=== PATIENT | male | born 1955 | race Caucasian/White ===

== ENCOUNTER 2017-09-20 14:13 | Inpatient (IN) | payer OTHER, MEDICARE ==
[~2017-09-20] VITALS: Ht 182.9 cm; Wt 81.2 kg
[2017-09-20 15:23] LABS: BASOPHILS % (AUTO) 0 % (0-1); EOSINOPHILS % (AUTO) 0.4 % (0-6); HEMATOCRIT 32.4 % (42.0-52.0); HEMOGLOBIN 11.1 g/dl (14.0-17.9); LYMPHOCYTES # (AUTO) 0.3 X10'3 (1.1-4.8); LYMPHOCYTES % (AUTO) 3.1 % (21-51); MEAN CORPUSCULAR HEMOGLOBIN 29.9 PG (27.0-31.0); MEAN CORPUSCULAR HGB CONC 34.1 % (33.0-36.5); MEAN CORPUSCULAR VOLUME 87.6 FL (78-98); MEAN PLATELET VOLUME 9.3 FL (7.4-10.4); MONOCYTES # (AUTO) 0.2 X10'3 (0-0.9); MONOCYTES % (AUTO) 2.7 % (2-12); NEUTROPHILS # (AUTO) 8.6 X10'3 (1.8-7.7); NEUTROPHILS % (AUTO) 93.8 % (42-75); PLATELET COUNT 205 X10'3 (140-440); RED CELL DISTRIBUTION WIDTH 14.8 % (11.5-14.5); WHITE BLOOD COUNT 9.1 X10'3 (4.5-11.0)
[2017-09-20] MEDS ORDERED: cefepime 1GM/NS ADD-VANTAGE 100 ML IV ONE (15:25)
[2017-09-20] MEDS ORDERED: azithromycin/NS 500mg/250ml 250 ML IV ONE (15:25)
[2017-09-20] MEDS ORDERED: vancomycin/NS 1 GM ADD-VANTAGE 250 ML IV ONE (15:25)
[2017-09-20 15:32] LABS: PARTIAL THROMBOPLASTIN TIME 28 SECONDS (22-32); PROTHROMBIN TIME 10.2 SECONDS (9.0-12.0)
[2017-09-20 15:38] LABS: ALANINE AMINOTRANSFERASE 29 U/L (12-78); ALBUMIN 2.9 G/DL (3.4-5.0); ALBUMIN/GLOBULIN RATIO 0.7 (1.1-1.5); ALKALINE PHOSPHATASE 90 IU/L (46-116); ANION GAP 13 (8-16); ASPARTATE AMINO TRANSFERASE 34 U/L (10-37); BILIRUBIN,TOTAL 0.4 MG/DL (0.1-1.0); BLOOD UREA NITROGEN 39 MG/DL (7-18); BUN/CREATININE RATIO 17.7 (5.4-32.0); CALCIUM 8.9 MG/DL (8.5-10.1); CHLORIDE 97 MMOL/L (99-107); GLUCOSE 261 MG/DL (70-104); LIPASE < 50 U/L (73-393); MAGNESIUM 1.8 MG/DL (1.5-2.4); POTASSIUM 4.7 MMOL/L (3.5-5.1); SODIUM 132 MMOL/L (135-145); TOTAL CARBON DIOXIDE 22.5 MMOL/L (24-32); eGFR 31 ML/MIN
[2017-09-20] MEDS ORDERED: cefepime inj. 1 GM in dextrose 5%-water 50ml 50 ML IV ONE (15:53)
[2017-09-20] MEDS ORDERED: normal saline 1000ML IV soln IV ONE (16:05)
[2017-09-20] MEDS ORDERED: potassium Cl 40MEQ/NS 500ml 500 ML IV PRN ×2 (16:15)
[2017-09-20] MEDS ORDERED: magnesium 4gm in 100ml NS 100 ML IV PRN (16:15)
[2017-09-20] MEDS ORDERED: ipratropium/albuterol 3ml nebule NEB PRN (16:15)
[2017-09-20] MEDS ORDERED: potassium Cl 20 mEq SR tablet PO PRN (16:15)
[2017-09-20] MEDS ORDERED: ondansetron/PF 4mg/2ml inj IV PRN (16:15)
[2017-09-20] MEDS: K and/or MAG REPLACEMENT MC SCH (16:15)
[2017-09-20] MEDS ORDERED: magnesium hydroxide 30ml (MOM) UD suspension PO PRN (16:15)
[2017-09-20] MEDS ORDERED: magnesium Cl slow-release 64mg tablet PO PRN (16:15)
[2017-09-20] MEDS ORDERED: mag hydrox/Alum hydrox/simeth 30ml oral suspension PO PRN (16:15)
[2017-09-20] MEDS ORDERED: magnesium 2GM in 50ml NS 50 ML IV PRN (16:15)
[2017-09-20] MEDS ORDERED: acetaminophen 325mg tablet PO PRN ×2 (16:15)
[2017-09-20 16:31] LABS: ABG BASE EXCESS -5.1 mmol/L (-2.0-3.0); ABG HCO3 19.4 mmol/L (22.0-26.0); ABG OXYGEN SATURATION 92.7 % (95-98); ABG PCO2 (T) 33.8 mmHg (35.0-48.0); ABG PH (T) 7.377 (7.350-7.450); ABG PO2 (T) 68.7 mmHg (83-108); ALLEN'S TEST Positive; FCOHb 1.5 % (0.5-1.5); FMetHb 0.3 % (0.3-1.12); TOTAL HEMOGLOBIN 9.3 G/dl (14.0-18.0)
[2017-09-20] MEDS: normal saline 1000ml 1,000 ML IV SCH (17:11)
[2017-09-20] MEDS ORDERED: glucagon, human recombinant 1mg kit IM ONE (18:30)
[2017-09-20 18:31] LABS: BASOPHILS % (AUTO) 0.2 % (0-1); EOSINOPHILS % (AUTO) 0.1 % (0-6); HEMOGLOBIN 8.8 g/dl (14.0-17.9); LYMPHOCYTES # (AUTO) 0.5 X10'3 (1.1-4.8); LYMPHOCYTES % (AUTO) 5.7 % (21-51); MEAN CORPUSCULAR HEMOGLOBIN 29.6 PG (27.0-31.0); MEAN CORPUSCULAR HGB CONC 33.7 % (33.0-36.5); MEAN CORPUSCULAR VOLUME 87.8 FL (78-98); MEAN PLATELET VOLUME 8.7 FL (7.4-10.4); MONOCYTES # (AUTO) 0.4 X10'3 (0-0.9); MONOCYTES % (AUTO) 4.6 % (2-12); NEUTROPHILS # (AUTO) 8.1 X10'3 (1.8-7.7); NEUTROPHILS % (AUTO) 89.4 % (42-75); PLATELET COUNT 152 X10'3 (140-440); RED BLOOD COUNT 2.96 X10'6 (4.70-6.10); WHITE BLOOD COUNT 9.1 X10'3 (4.5-11.0)
[2017-09-20 18:59] LABS: TROPONIN I < 0.04 NG/ML (0.0-0.05)
[2017-09-20 20:21] LABS: ALANINE AMINOTRANSFERASE 24 U/L (12-78); ALBUMIN 2.3 G/DL (3.4-5.0); ALBUMIN/GLOBULIN RATIO 0.7 (1.1-1.5); ALKALINE PHOSPHATASE 65 IU/L (46-116); ANION GAP 8 (8-16); ASPARTATE AMINO TRANSFERASE 30 U/L (10-37); BILIRUBIN,TOTAL 0.4 MG/DL (0.1-1.0); BLOOD UREA NITROGEN 37 MG/DL (7-18); BUN/CREATININE RATIO 20.3 (5.4-32.0); CALCIUM 7.6 MG/DL (8.5-10.1); CHLORIDE 105 MMOL/L (99-107); CREATININE 1.82 MG/DL (0.60-1.10); GLUCOSE 221 MG/DL (70-104); POTASSIUM 4.5 MMOL/L (3.5-5.1); SODIUM 135 MMOL/L (135-145); TOTAL CARBON DIOXIDE 22.1 MMOL/L (24-32); TOTAL PROTEIN 5.5 G/DL (6.4-8.2); eGFR 38 ML/MIN
[2017-09-20 20:23] LABS: CLARITY,URINE CLEAR (Clear); COLOR,URINE YELLOW (Yellow); GLUCOSE, URINE 100 mg/dl (Neg); KETONES,URINE NEGATIVE (Neg); LEUKOCYTE ESTERASE ,URINE NEGATIVE (Neg); NITRITES, URINE NEGATIVE (Neg); OCCULT BLOOD,URINE LARGE (Neg); PROTEIN,URINE NEGATIVE (Neg); UROBILINOGEN,URINE 0.2 E.U/dL (0.2-1.0)
[2017-09-20] MEDS: ipratropium/albuterol 3ml nebule NEB SCH ×2 (20:34→23:57)
[2017-09-20 20:35] LABS: UA COLLECTION TYPE FOLEY CATH
[2017-09-20 20:36] LABS: BACTERIA,URINE FEW /HPF (Neg); MUCUS STRANDS FEW /LPF (Neg); RBC,URINE 0-2 /HPF (0-2); SQUAMOUS EPITHELIAL CELL,UR FEW /LPF (FEW); WBC,URINE NONE SEEN /HPF (0-4)
[2017-09-20] MEDS ORDERED: glucagon, human recombinant 1mg kit IV ONE (21:10)
[2017-09-20] MEDS ORDERED: dexamethasone 4mg tablet PO ONE (21:15)
[2017-09-20] MEDS ORDERED: NORepinephrine 8mg/ 250ml NS 250 ML IV SCH (23:15)
[2017-09-21] VITALS (16 sets, daily range): BP systolic 108–149; BP diastolic 60–76
[2017-09-21] MEDS ORDERED: normal saline 1000ml 1,000 ML IV SCH (01:35)
[2017-09-21] MEDS ORDERED: levoFLOXACIN-Levaquin 500mg/D5 100 ML IV ONE (01:35)
[2017-09-21] MEDS: normal saline 1000ml 1,000 ML IV SCH (02:15)
[2017-09-21] MEDS ORDERED: CLOP75TA15 PO (02:23)
[2017-09-21] MEDS ORDERED: CYCL-394 PO (02:23)
[2017-09-21] MEDS ORDERED: ATEN-169 PO (02:23)
[2017-09-21] MEDS ORDERED: MESA0.37 PO (02:23)
[2017-09-21] MEDS ORDERED: METF500T PO (02:23)
[2017-09-21] MEDS ORDERED: LOSA25TA96 PO (02:23)
[2017-09-21] MEDS ORDERED: ROSU40TA PO (02:23)
[2017-09-21] MEDS ORDERED: AMLO2.5T2 PO (02:23)
[2017-09-21] MEDS ORDERED: ISOS60TA4 PO (02:23)
[2017-09-21] MEDS ORDERED: HYDR25TA4 PO (02:23)
[2017-09-21] MEDS ORDERED: MORP60CP14 PO (02:23)
[2017-09-21] MEDS ORDERED: QUET-1 PO (02:23)
[2017-09-21] MEDS ORDERED: TERA5CAP4 PO (02:23)
[2017-09-21] MEDS ORDERED: FERR325T28 PO (02:23)
[2017-09-21] MEDS ORDERED: ALB0.5UD IH (02:23)
[2017-09-21] MEDS ORDERED: GABA-534 PO (02:23)
[2017-09-21] MEDS ORDERED: CHOL100024 PO (02:28)
[2017-09-21 03:31] LABS: BASOPHILS % (AUTO) 0 % (0-1); EOSINOPHILS # (AUTO) 0.1 X10'3 (0-0.9); EOSINOPHILS % (AUTO) 0.8 % (0-6); HEMATOCRIT 28.8 % (42.0-52.0); HEMOGLOBIN 9.8 g/dl (14.0-17.9); LYMPHOCYTES # (AUTO) 0.3 X10'3 (1.1-4.8); LYMPHOCYTES % (AUTO) 3.3 % (21-51); MEAN CORPUSCULAR HEMOGLOBIN 29.9 PG (27.0-31.0); MEAN PLATELET VOLUME 9.1 FL (7.4-10.4); MONOCYTES # (AUTO) 0.1 X10'3 (0-0.9); MONOCYTES % (AUTO) 0.6 % (2-12); NEUTROPHILS # (AUTO) 9.1 X10'3 (1.8-7.7); NEUTROPHILS % (AUTO) 95.3 % (42-75); PLATELET COUNT 164 X10'3 (140-440); RED BLOOD COUNT 3.27 X10'6 (4.70-6.10); RED CELL DISTRIBUTION WIDTH 15.2 % (11.5-14.5); WHITE BLOOD COUNT 9.5 X10'3 (4.5-11.0)
[2017-09-21 03:51] LABS: ALANINE AMINOTRANSFERASE 28 U/L (12-78); ALBUMIN 2.6 G/DL (3.4-5.0); ALBUMIN/GLOBULIN RATIO 0.7 (1.1-1.5); ALKALINE PHOSPHATASE 74 IU/L (46-116); ANION GAP 9 (8-16); ASPARTATE AMINO TRANSFERASE 35 U/L (10-37); BILIRUBIN,TOTAL 0.5 MG/DL (0.1-1.0); BLOOD UREA NITROGEN 27 MG/DL (7-18); BUN/CREATININE RATIO 20.8 (5.4-32.0); CALCIUM 8.2 MG/DL (8.5-10.1); CHLORIDE 106 MMOL/L (99-107); GLUCOSE 309 MG/DL (70-104); MAGNESIUM 1.8 MG/DL (1.5-2.4); POTASSIUM 3.8 MMOL/L (3.5-5.1); SODIUM 137 MMOL/L (135-145); TOTAL CARBON DIOXIDE 22.4 MMOL/L (24-32); TOTAL PROTEIN 6.4 G/DL (6.4-8.2); eGFR 56 ML/MIN
[2017-09-21] MEDS ORDERED: MESSAGE TO PHARMACY PO ONE (04:20)
[2017-09-21] MEDS ORDERED: dextrose ORAL solution 15 GM/59 ML bottle PO PRN ×2 (04:20)
[2017-09-21] MEDS ORDERED: glucagon, human recombinant 1mg kit SUBCUT PRN (04:20)
[2017-09-21] MEDS ORDERED: dextrose 50%-water 50ml dispensing syringe IV PRN ×2 (04:20)
[2017-09-21 05:29] LABS: FERRITIN 57 NG/ML (26-388)
[2017-09-21 06:13] LABS: % IRON SATURATION 7 % (11-46); IRON 20 UG/DL (53-167); TOTAL IRON BINDING CAPACITY 293 UG/DL (259-388)
[2017-09-21] MEDS: ipratropium/albuterol 3ml nebule NEB SCH ×5 (07:00→23:00)
[2017-09-21] MEDS ORDERED: cefepime 1GM/NS ADD-VANTAGE 100 ML IV SCH (08:00)
[2017-09-21] MEDS ORDERED: azithromycin/NS 500mg/250ml 250 ML IV SCH (08:00)
[2017-09-21] MEDS ORDERED: cefepime inj. 1 GM in dextrose 5%-water 50ml 50 ML IV SCH (08:00)
[2017-09-21] MEDS: gabapentin 400mg capsule PO SCH ×2 (08:00→19:39)
[2017-09-21] MEDS: K and/or MAG REPLACEMENT MC SCH (08:00)
[2017-09-21] MEDS ORDERED: pantoprazole 40 MG vial IV ONE (08:05)
[2017-09-21] MEDS: vitamin D (cholecalciferol) 1,000 unit tablet PO SCH (09:06)
[2017-09-21] MEDS: atorvastatin 20mg tablet PO SCH (09:06)
[2017-09-21] MEDS: ferrous sulfate 325mg tablet PO SCH (09:06)
[2017-09-21] MEDS: mesalamine 400 mg capsule.DR PO SCH ×4 (09:06→21:24)
[2017-09-21] MEDS: insulin Lispro (HumaLOG) vial - multi-dose SQ SCH ×2 (09:18→14:43)
[2017-09-21] MEDS: cefepime inj. 1 GM in dextrose 5%-water 100 ML IV SCH ×2 (09:19→16:50)
[2017-09-21] MEDS: vancomycin/NS 1 GM ADD-VANTAGE 250 ML IV SCH (14:40)
[2017-09-21] MEDS ORDERED: vancomycin inj 1,250 MG in normal saline 250ml IV soln 250 ML IV SCH (16:00)
[2017-09-21] MEDS: lactobacillus rhamnosus 10,000 MMU CELLS/CAPSULE PO SCH (19:39)
[2017-09-21] MEDS ORDERED: nitroGLYCERIN 0.4mg SUBLingual tab SL ONE (20:29)
[2017-09-21] MEDS ORDERED: nitroGLYCERIN 0.4mg SUBLingual tab SL PRN (20:30)
[2017-09-21] MEDS ORDERED: aspirin 81mg tab.chew PO ONE (20:35)
[2017-09-21] MEDS ORDERED: morphine 4 MG/ML inj SYRINge IV ONE (20:35)
[2017-09-21] MEDS ORDERED: morphine 4 MG/ML inj SYRINge ONE (20:38)
[2017-09-21] MEDS: terazosin 5mg capsule PO SCH (20:41)
[2017-09-21] MEDS ORDERED: insulin glargine (Lantus) pen - multi-dose SQ SCH (21:00)
[2017-09-21 21:10] LABS: ALBUMIN 2.9 G/DL (3.4-5.0); ANION GAP 14 (8-16); BLOOD UREA NITROGEN 19 MG/DL (7-18); BUN/CREATININE RATIO 18.8 (5.4-32.0); CHLORIDE 105 MMOL/L (99-107); CREATININE 1.01 MG/DL (0.60-1.10); GLUCOSE 205 MG/DL (70-104); POTASSIUM 3.1 MMOL/L (3.5-5.1); SODIUM 141 MMOL/L (135-145); TOTAL CARBON DIOXIDE 22.3 MMOL/L (24-32); eGFR 75 ML/MIN
[2017-09-21] MEDS: insulin glargine (Lantus) pen - multi-dose SQ SCH (21:23)
[2017-09-21 21:25] LABS: TROPONIN I 0.07 NG/ML (0.0-0.05)
[2017-09-21] MEDS: temazepam 15mg capsule PO PRN (21:25)
[2017-09-21] MEDS: potassium Cl 20 mEq SR tablet PO PRN (21:27)
[2017-09-22] MEDS: cefepime inj. 1 GM in dextrose 5%-water 100 ML IV SCH ×3 (00:11→16:38)
[2017-09-22] MEDS: vancomycin/NS 1 GM ADD-VANTAGE 250 ML IV SCH ×2 (01:03→12:46)
[2017-09-22 02:31] LABS: BASOPHILS % (AUTO) 0.3 % (0-1); EOSINOPHILS % (AUTO) 0 % (0-6); HEMATOCRIT 27.6 % (42.0-52.0); HEMOGLOBIN 9.3 g/dl (14.0-17.9); LYMPHOCYTES # (AUTO) 0.7 X10'3 (1.1-4.8); LYMPHOCYTES % (AUTO) 7.4 % (21-51); MEAN CORPUSCULAR HEMOGLOBIN 29.9 PG (27.0-31.0); MEAN CORPUSCULAR HGB CONC 33.7 % (33.0-36.5); MEAN CORPUSCULAR VOLUME 88.8 FL (78-98); MONOCYTES # (AUTO) 0.5 X10'3 (0-0.9); MONOCYTES % (AUTO) 6.2 % (2-12); NEUTROPHILS # (AUTO) 7.6 X10'3 (1.8-7.7); NEUTROPHILS % (AUTO) 86.1 % (42-75); PLATELET COUNT 174 X10'3 (140-440); RED BLOOD COUNT 3.11 X10'6 (4.70-6.10); RED CELL DISTRIBUTION WIDTH 15.1 % (11.5-14.5); WHITE BLOOD COUNT 8.8 X10'3 (4.5-11.0)
[2017-09-22 02:52] LABS: ALANINE AMINOTRANSFERASE 25 U/L (12-78); ALBUMIN 2.3 G/DL (3.4-5.0); ALBUMIN/GLOBULIN RATIO 0.6 (1.1-1.5); ALKALINE PHOSPHATASE 66 IU/L (46-116); ANION GAP 8 (8-16); ASPARTATE AMINO TRANSFERASE 29 U/L (10-37); BILIRUBIN,TOTAL 0.4 MG/DL (0.1-1.0); BLOOD UREA NITROGEN 16 MG/DL (7-18); BUN/CREATININE RATIO 16.7 (5.4-32.0); CALCIUM 8.4 MG/DL (8.5-10.1); CHLORIDE 108 MMOL/L (99-107); CREATININE 0.96 MG/DL (0.60-1.10); GLUCOSE 203 MG/DL (70-104); MAGNESIUM 1.6 MG/DL (1.5-2.4); POTASSIUM 3.6 MMOL/L (3.5-5.1); SODIUM 141 MMOL/L (135-145); TOTAL CARBON DIOXIDE 24.6 MMOL/L (24-32); eGFR 80 ML/MIN
[2017-09-22 03:00] VITALS: BP 118/51
[2017-09-22 07:00] VITALS: BP 144/66
[2017-09-22] MEDS: ipratropium/albuterol 3ml nebule NEB SCH ×5 (07:00→23:00)
[2017-09-22] MEDS: gabapentin 400mg capsule PO SCH ×2 (07:28→19:29)
[2017-09-22] MEDS: ferrous sulfate 325mg tablet PO SCH (07:28)
[2017-09-22] MEDS: mesalamine 400 mg capsule.DR PO SCH ×4 (07:28→20:51)
[2017-09-22] MEDS: vitamin D (cholecalciferol) 1,000 unit tablet PO SCH (07:28)
[2017-09-22] MEDS: pantoprazole 40 MG vial IV SCH (07:28)
[2017-09-22] MEDS: lactobacillus rhamnosus 10,000 MMU CELLS/CAPSULE PO SCH ×2 (07:28→19:29)
[2017-09-22] MEDS: atorvastatin 20mg tablet PO SCH (07:28)
[2017-09-22] MEDS: K and/or MAG REPLACEMENT MC SCH (08:00)
[2017-09-22] MEDS: insulin Lispro (HumaLOG) vial - multi-dose SQ SCH ×3 (08:35→18:46)
[2017-09-22 11:00] VITALS: BP 135/72
[2017-09-22 15:00] VITALS: BP 152/80
[2017-09-22] MEDS: normal saline 1000ml 1,000 ML IV SCH (17:39)
[2017-09-22 19:00] VITALS: BP 157/78
[2017-09-22] MEDS: terazosin 5mg capsule PO SCH (20:51)
[2017-09-22] MEDS: insulin glargine (Lantus) pen - multi-dose SQ SCH (20:59)
[2017-09-22] MEDS: temazepam 15mg capsule PO PRN (21:51)
[2017-09-22 23:00] VITALS: BP_SYST 108; BP_SYST 139; BP_DIAS 59; BP_DIAS 84
[2017-09-23] MEDS: cefepime inj. 1 GM in dextrose 5%-water 100 ML IV SCH ×2 (00:10→07:35)
[2017-09-23] MEDS: vancomycin/NS 1 GM ADD-VANTAGE 250 ML IV SCH (01:58)
[2017-09-23 03:00] VITALS: BP 133/58
[2017-09-23 05:16] LABS: BASOPHILS % (AUTO) 0.2 % (0-1); EOSINOPHILS # (AUTO) 0.3 X10'3 (0-0.9); EOSINOPHILS % (AUTO) 3.6 % (0-6); HEMOGLOBIN 9.8 g/dl (14.0-17.9); LYMPHOCYTES # (AUTO) 1.3 X10'3 (1.1-4.8); LYMPHOCYTES % (AUTO) 15.5 % (21-51); MEAN CORPUSCULAR HGB CONC 33.9 % (33.0-36.5); MEAN CORPUSCULAR VOLUME 88.6 FL (78-98); MEAN PLATELET VOLUME 8.8 FL (7.4-10.4); MONOCYTES # (AUTO) 0.6 X10'3 (0-0.9); MONOCYTES % (AUTO) 7.9 % (2-12); NEUTROPHILS % (AUTO) 72.8 % (42-75); PLATELET COUNT 169 X10'3 (140-440); RED BLOOD COUNT 3.27 X10'6 (4.70-6.10); RED CELL DISTRIBUTION WIDTH 14.9 % (11.5-14.5); WHITE BLOOD COUNT 8.2 X10'3 (4.5-11.0)
[2017-09-23 05:42] LABS: ALANINE AMINOTRANSFERASE 35 U/L (12-78); ALBUMIN 2.4 G/DL (3.4-5.0); ALBUMIN/GLOBULIN RATIO 0.6 (1.1-1.5); ALKALINE PHOSPHATASE 75 IU/L (46-116); ANION GAP 8 (8-16); ASPARTATE AMINO TRANSFERASE 38 U/L (10-37); BILIRUBIN,TOTAL 0.5 MG/DL (0.1-1.0); BLOOD UREA NITROGEN 11 MG/DL (7-18); BUN/CREATININE RATIO 14.1 (5.4-32.0); CALCIUM 8.3 MG/DL (8.5-10.1); CHLORIDE 110 MMOL/L (99-107); CREATININE 0.78 MG/DL (0.60-1.10); GLUCOSE 100 MG/DL (70-104); MAGNESIUM 1.5 MG/DL (1.5-2.4); SODIUM 144 MMOL/L (135-145); TOTAL CARBON DIOXIDE 25.8 MMOL/L (24-32); TOTAL PROTEIN 6.1 G/DL (6.4-8.2); eGFR > 90 ML/MIN
[2017-09-23 05:55] LABS: POTASSIUM 3.2 MMOL/L (3.5-5.1)
[2017-09-23 07:00] VITALS: BP 162/78
[2017-09-23] MEDS: ipratropium/albuterol 3ml nebule NEB SCH (07:00)
[2017-09-23] MEDS: pantoprazole 40 MG vial IV SCH (07:35)
[2017-09-23] MEDS: atorvastatin 20mg tablet PO SCH (07:36)
[2017-09-23] MEDS: ferrous sulfate 325mg tablet PO SCH (07:36)
[2017-09-23] MEDS: potassium Cl 20 mEq SR tablet PO PRN (07:36)
[2017-09-23] MEDS: vitamin D (cholecalciferol) 1,000 unit tablet PO SCH (07:36)
[2017-09-23] MEDS: gabapentin 400mg capsule PO SCH (07:37)
[2017-09-23] MEDS: lactobacillus rhamnosus 10,000 MMU CELLS/CAPSULE PO SCH (07:38)
[2017-09-23] MEDS: K and/or MAG REPLACEMENT MC SCH (08:00)
[2017-09-23] MEDS: mesalamine 400 mg capsule.DR PO SCH (09:39)
[2017-09-23 11:00] VITALS: BP 167/80
[2017-09-23] MEDS ORDERED: FERR325T39 PO (12:01)
[2017-09-23] MEDS ORDERED: LACT1CAP26 PO (12:01)
[2017-09-23] MEDS ORDERED: AZIT500T5 PO (12:01)
[2017-09-23] MEDS ORDERED: LEVO500T2 PO (12:26)
[2017-09-23] MEDS ORDERED: VANCOMYCIN LEVEL IV ONE (12:30)
[2017-09-24] MEDS ORDERED: lisinopril 10 MG tablet PO SCH (08:00)
[2017-09-24] MEDS ORDERED: metoprolol succinate 25mg (24-HOUR) SR. Tablet PO SCH (08:00)
[2017-09-25 12:22] LABS: OCCULT BLOOD STOOL NEGATIVE (Neg)
== END 2017-09-23 12:45 | disposition home or self-care (01) | DRG 871 ==
LOC: ER 14:13 → ED HOLD 16:44 → EDBEDREQSVC 17:02 → EDBEDREQ 19:47 → EDBEDREQTM 19:47 → EDBEDREQDT 09-21 01:04 → CICU 2S 09-21 01:36 → PCU 3S 09-21 15:40
PROVIDERS: ADMIT Family Medicine; ATTEND Internal Medicine
PROC: 02HV33Z Insertion of Infusion Device into Superior Vena Cava, Percutaneous Approach (ICD-10-PCS; principal; 2017-09-20)
DX: A41.9 Sepsis, unspecified organism (principal); J18.9 Pneumonia, unspecified organism; J96.01 Acute respiratory failure with hypoxia; R65.21 Severe sepsis with septic shock; G93.40 Encephalopathy, unspecified; N17.9 Acute kidney failure, unspecified; K50.90 Crohn's disease, unspecified, without complications; J44.0 Chronic obstructive pulmonary disease with (acute) lower respiratory infection; E11.22 Type 2 diabetes mellitus with diabetic chronic kidney disease; I12.9 Hypertensive chronic kidney disease with stage 1 through stage 4 chronic kidney disease, or unspecified chronic kidney disease; N18.9 Chronic kidney disease, unspecified; M54.9 Dorsalgia, unspecified; D64.9 Anemia, unspecified; G89.29 Other chronic pain; E11.42 Type 2 diabetes mellitus with diabetic polyneuropathy; R55 Syncope and collapse; I25.10 Atherosclerotic heart disease of native coronary artery without angina pectoris; N40.0 Benign prostatic hyperplasia without lower urinary tract symptoms; Y95 Nosocomial condition; F17.210 Nicotine dependence, cigarettes, uncomplicated; Z95.1 Presence of aortocoronary bypass graft; Z95.5 Presence of coronary angioplasty implant and graft; Z87.442 Personal history of urinary calculi; Z86.73 Personal history of transient ischemic attack (TIA), and cerebral infarction without residual deficits; Z82.49 Family history of ischemic heart disease and other diseases of the circulatory system
CPT/HCPCS: 36415; 36556; 36600; 70450; 71045; 71250; 80048; 80053; 80202; 81001; 82140; 82272; 82533; 82553; 82607; 82728; 82746; 82803; 82948; 83036; 83540; 83550; 83605; 83690; 83735; 84145; 84443; 84484; 85018; 85025; 85610; 85730; 86885; 86900; 86901; 86920; 87040; 87070; 87502; 87503; 93005; 93306; 94640; 94760; 96365; 96366; 96368; 97116; 97162; 97530; 99291; 99292; A6213; A6222; A6257; A6449; C1751; C1758; C9113; J0456; J0692; J1610; J1815; J1956; J2270; J2405; J3370; J7030; J7060; J8540